=== PATIENT | female | born 1975 | race Caucasian/White ===

== ENCOUNTER 2017-07-15 08:39 | Emergency (ER) | payer MEDICAID ==
[2017-07-15] MEDS: KETOROLAC 60 MG INJ IM (10:44)
== END 2017-07-15 12:40 | disposition home or self-care (01) ==
LOC: FTE 08:39
DX: S80.01XA Contusion of right knee, initial encounter (principal); F17.210 Nicotine dependence, cigarettes, uncomplicated; X58.XXXA Exposure to other specified factors, initial encounter; Y92.9 Unspecified place or not applicable
CPT/HCPCS: 73562; 81025; 96372; 99284-25